=== PATIENT | female | born 1955 | race Caucasian/White ===

== ENCOUNTER → 2019-01-03 | Emergency (ER) | payer BC ==
[~2019-01-03] VITALS: Ht 177.8 cm; Wt 87.3 kg
[~2019-01-03] MED LIST: HYDROcodone/acetaminophen 10/325mg tab PO ONE; LIDOcaine 1% w/epiNEPHrine 1:200,000 30ml vial IM ONE
[2019-01-03 11:38] VITALS: BP 156/84
--- NOTE | 2019-01-03 15:06 | NUR ---
XYLOCAINE GIVEN BY CORINA WALKER TO LEFT LOWER LEG
== END | disposition home or self-care (01) ==
LOC: ER 11:26
DX: S81.812A Laceration without foreign body, left lower leg, initial encounter (principal); W18.30XA Fall on same level, unspecified, initial encounter; Y93.89 Activity, other specified; Y92.89 Other specified places as the place of occurrence of the external cause; Y99.8 Other external cause status
CPT/HCPCS: 12004; 73590; 99283; J3490